=== PATIENT | female | born 1960 | race Caucasian/White ===

== ENCOUNTER 2022-06-21 12:23 | Emergency (ER) | payer MEDICARE ==
[2022-06-21 12:57] LABS: BASOPHIL 0.1 % (0-2); HCT 41.1 % (37.0-47.0); HGB 13.4 g/dl (12.5-16.0); LYMPHOCYTE 36.2 % (15-48); MCH 31.2 pg (25.0-31.0); MCHC 32.6 g/dL (32.0-36.0); MCV 95.8 fL (78.0-100.0); MONOCYTE 8.4 % (0-12); MPV 10.8 fL (6.0-9.5); NEUTROPHIL 52.1 % (41-80); NRBC 0; PLT 99 K/uL (150-400); RBC 4.29 M/uL (4.20-5.40); RDW 17.6 % (11.5-14.0); WBC 8.2 K/uL (4.0-10.5)
[2022-06-21 13:13] LABS: INR 0.99 (0.9-1.2); PROTHROMBIN TIME 12.8 SECONDS (11.9-13.9); PTT 23.9 SECONDS (24.9-34.6)
[2022-06-21 13:23] LABS: ALBUMIN 3.3 g/dL (3.4-5.0); BILIRUBIN - TOTAL 0.7 mg/dL (0.2-1.0); BUN/CREAT RATIO (CALC) 28.4 RATIO; CREATININE 0.88 mg/dL (0.51-0.95); GLOBULIN (CALCULATION) 2.9 g/dL; POTASSIUM 3.7 mmol/L (3.5-5.1); TOTAL PROTEIN 6.2 g/dL (6.4-8.2)
== END 2022-06-21 13:49 | disposition left against medical advice (07) ==
LOC: FER 12:23
PROVIDERS: Emergency Medicine
DX: R07.9 Chest pain, unspecified (principal); M79.602 Pain in left arm; R68.84 Jaw pain; Z53.29 Procedure and treatment not carried out because of patient's decision for other reasons; Z88.2 Allergy status to sulfonamides; Z88.8 Allergy status to other drugs, medicaments and biological substances
CPT/HCPCS: 36415; 71045; 80053; 84484; 85025; 85610; 85730; 93005